=== PATIENT | female | born 2000 ===

== ENCOUNTER 2018-09-21 18:23 | Emergency (ER) | payer OTHER, MEDICAID ==
[2018-07-08 10:57] VITALS: BMI 25.7
[2018-09-21 23:44] VITALS: BP 119/63; PULSE 94; RESP 18; TEMP 98; O2SAT 100
== END 2018-09-21 19:05 | disposition home or self-care (01) ==
LOC: H.EROB2 18:23
DX: O76 Abnormality in fetal heart rate and rhythm complicating labor and delivery (principal); Z3A.17 17 weeks gestation of pregnancy; O09.32 Supervision of pregnancy with insufficient antenatal care, second trimester